=== PATIENT | male | born 1995 | race Caucasian/White ===

== ENCOUNTER 2019-07-27 20:29 | Emergency (ER) | payer SELFPAY ==
--- NOTE | 2019-07-27 21:44 | RAD ---
RIGHT WRIST THREE VIEWS: History: Fall with injury. FINDINGS: Distal radius and ulna appear intact. Carpals appear intact. Metacarpals appear intact. IMPRESSION: No acute fracture identified. POS: [facility]
== END 2019-07-27 21:28 | disposition home or self-care (01) ==
LOC: BURERS 20:29
DX: S69.91XA Unspecified injury of right wrist, hand and finger(s), initial encounter (principal); W01.0XXA Fall on same level from slipping, tripping and stumbling without subsequent striking against object, initial encounter